=== PATIENT | male | born 1940 | race Caucasian/White ===

== ENCOUNTER 2018-01-27 19:51 | Inpatient (IN) | payer MEDICARE, BC ==
[2018-01-27] VITALS: BP 128/71
[~2018-01-27] VITALS: Ht 172.7 cm; Wt 175.0 kg
[2018-01-27] MEDS ORDERED: normal saline 1000ML IV soln IVB ONE (20:00)
[2018-01-27] MEDS ORDERED: pantoprazole 40 MG vial IV ONE (20:05)
[2018-01-27] MEDS ORDERED: ASPI-1265 PO (20:16)
[2018-01-27 20:17] LABS: BASOPHILS # (AUTO) 0.1 X10'3 (0-0.2); BASOPHILS % (AUTO) 0.6 % (0-1); EOSINOPHILS # (AUTO) 0.4 X10'3 (0-0.9); EOSINOPHILS % (AUTO) 2.6 % (0-6); HEMATOCRIT 40.3 % (42.0-52.0); HEMOGLOBIN 13.9 g/dl (14.0-17.9); LYMPHOCYTES # (AUTO) 2.7 X10'3 (1.1-4.8); MEAN CORPUSCULAR HEMOGLOBIN 32.8 PG (27.0-31.0); MEAN CORPUSCULAR HGB CONC 34.5 % (33.0-36.5); MEAN CORPUSCULAR VOLUME 95.1 FL (78-98); MEAN PLATELET VOLUME 7.9 FL (7.4-10.4); MONOCYTES # (AUTO) 0.9 X10'3 (0-0.9); MONOCYTES % (AUTO) 5.5 % (2-12); NEUTROPHILS # (AUTO) 11.8 X10'3 (1.8-7.7); NEUTROPHILS % (AUTO) 74.3 % (42-75); PLATELET COUNT 455 X10'3 (140-440); RED BLOOD COUNT 4.24 X10'6 (4.70-6.10); WHITE BLOOD COUNT 15.9 X10'3 (4.5-11.0)
[2018-01-27] MEDS: pantoprazole 40MG/NS 100ML BAG 100 ML IV SCH (20:33)
[2018-01-27] MEDS ORDERED: temazepam 15mg capsule PO PRN (21:00)
[2018-01-27 21:27] LABS: INR 1.1 INR; PARTIAL THROMBOPLASTIN TIME 23 SECONDS (22-32); PROTHROMBIN TIME 11.6 SECONDS (9.0-12.0)
[2018-01-27 21:30] LABS: ALANINE AMINOTRANSFERASE 20 U/L (12-78); ALBUMIN 2.8 G/DL (3.4-5.0); ALKALINE PHOSPHATASE 93 IU/L (46-116); ANION GAP 6 (8-16); ASPARTATE AMINO TRANSFERASE 16 U/L (10-37); BILIRUBIN,TOTAL 0.4 MG/DL (0.1-1.0); BLOOD UREA NITROGEN 37 MG/DL (7-18); BUN/CREATININE RATIO 39.8 (5.4-32.0); CALCIUM 8.3 MG/DL (8.5-10.1); CHLORIDE 106 MMOL/L (99-107); CREATININE 0.93 MG/DL (0.60-1.10); GLUCOSE 135 MG/DL (70-104); POTASSIUM 4.3 MMOL/L (3.5-5.1); SODIUM 142 MMOL/L (135-145); TOTAL CARBON DIOXIDE 29.9 MMOL/L (24-32); TOTAL PROTEIN 5.6 G/DL (6.4-8.2); eGFR 79 ML/MIN
[2018-01-27 21:34] LABS: TROPONIN I < 0.04 NG/ML (0.0-0.05)
[2018-01-27 21:38] LABS: CLARITY,URINE CLEAR (Clear); COLOR,URINE YELLOW (Yellow); GLUCOSE, URINE NEGATIVE (Neg); KETONES,URINE 15 mg/dl (Neg); LEUKOCYTE ESTERASE ,URINE NEGATIVE (Neg); NITRITES, URINE NEGATIVE (Neg); OCCULT BLOOD,URINE NEGATIVE (Neg); PROTEIN,URINE NEGATIVE (Neg)
[2018-01-27 21:39] LABS: UA COLLECTION TYPE CLN CATCH MIDSTREAM
[2018-01-27] MEDS ORDERED: ondansetron/PF 4mg/2ml inj IV PRN (22:25)
[2018-01-27] MEDS ORDERED: acetaminophen 325mg tablet PO PRN ×2 (22:25)
[2018-01-27] MEDS ORDERED: mag hydrox/Alum hydrox/simeth 30ml oral suspension PO PRN (22:25)
[2018-01-27] MEDS ORDERED: magnesium hydroxide 30ml (MOM) UD suspension PO PRN (22:25)
[2018-01-27] MEDS ORDERED: HYDROcodone/acetaminophen 5mg/325mg tablet PO PRN (22:25)
[2018-01-27 22:46] LABS: OCCULT BLOOD STOOL NEGATIVE (Neg)
[2018-01-27 22:47] LABS: GASTRIC OCCULT BLOOD POSITIVE (Neg)
[2018-01-27] MEDS: normal saline 1000ml 1,000 ML IV SCH (22:47)
[2018-01-28] VITALS (12 sets, daily range): BP systolic 98–146; BP diastolic 57–96
[2018-01-28] MEDS ORDERED: pantoprazole 40MG/NS 100ML BAG 100 ML IV SCH (01:00)
[2018-01-28] MEDS: pantoprazole 40MG/NS 100ML BAG 100 ML IV SCH ×5 (02:32→21:00)
[2018-01-28 05:48] LABS: ALBUMIN 2.7 G/DL (3.4-5.0); ANION GAP 6 (8-16); BLOOD UREA NITROGEN 39 MG/DL (7-18); BUN/CREATININE RATIO 49.4 (5.4-32.0); CALCIUM 8.2 MG/DL (8.5-10.1); CHLORIDE 107 MMOL/L (99-107); CREATININE 0.79 MG/DL (0.60-1.10); GLUCOSE 113 MG/DL (70-104); POTASSIUM 4.1 MMOL/L (3.5-5.1); SODIUM 140 MMOL/L (135-145); TOTAL CARBON DIOXIDE 27.4 MMOL/L (24-32); eGFR > 90 ML/MIN
[2018-01-28 05:54] LABS: BASOPHILS # (AUTO) 0.1 X10'3 (0-0.2); BASOPHILS % (AUTO) 0.5 % (0-1); EOSINOPHILS # (AUTO) 0.2 X10'3 (0-0.9); EOSINOPHILS % (AUTO) 1.8 % (0-6); HEMATOCRIT 33.9 % (42.0-52.0); HEMOGLOBIN 11.5 g/dl (14.0-17.9); LYMPHOCYTES # (AUTO) 1.2 X10'3 (1.1-4.8); LYMPHOCYTES % (AUTO) 10.8 % (21-51); MEAN CORPUSCULAR HEMOGLOBIN 32.6 PG (27.0-31.0); MEAN CORPUSCULAR HGB CONC 34.1 % (33.0-36.5); MEAN CORPUSCULAR VOLUME 95.6 FL (78-98); MEAN PLATELET VOLUME 7.7 FL (7.4-10.4); MONOCYTES # (AUTO) 0.7 X10'3 (0-0.9); MONOCYTES % (AUTO) 6.3 % (2-12); NEUTROPHILS % (AUTO) 80.6 % (42-75); PLATELET COUNT 393 X10'3 (140-440); RED BLOOD COUNT 3.54 X10'6 (4.70-6.10); RED CELL DISTRIBUTION WIDTH 13.5 % (11.5-14.5); WHITE BLOOD COUNT 11.1 X10'3 (4.5-11.0)
[2018-01-28] MEDS: normal saline 1000ml 1,000 ML IV SCH ×3 (08:44→23:11)
[2018-01-28] MEDS ORDERED: fentaNYL/PF 50MCG/1 ML 2ML syringe ONE (15:28)
[2018-01-28] MEDS ORDERED: MIDAZolam 5mg/5ml vial ONE (15:29)
[2018-01-28] MEDS ORDERED: LIDOcaine Viscous 15ml cup ONE (15:29)
[2018-01-29] VITALS: BP 126/71
[2018-01-29] MEDS: pantoprazole 40MG/NS 100ML BAG 100 ML IV SCH ×2 (01:42→07:51)
[2018-01-29 05:33] LABS: BASOPHILS # (AUTO) 0.1 X10'3 (0-0.2); BASOPHILS % (AUTO) 0.9 % (0-1); EOSINOPHILS # (AUTO) 0.2 X10'3 (0-0.9); EOSINOPHILS % (AUTO) 2.7 % (0-6); HEMATOCRIT 32.9 % (42.0-52.0); HEMOGLOBIN 11.1 g/dl (14.0-17.9); LYMPHOCYTES # (AUTO) 1.9 X10'3 (1.1-4.8); LYMPHOCYTES % (AUTO) 24.1 % (21-51); MEAN CORPUSCULAR HEMOGLOBIN 32.3 PG (27.0-31.0); MEAN CORPUSCULAR HGB CONC 33.7 % (33.0-36.5); MEAN CORPUSCULAR VOLUME 95.8 FL (78-98); MEAN PLATELET VOLUME 7.5 FL (7.4-10.4); MONOCYTES # (AUTO) 0.6 X10'3 (0-0.9); MONOCYTES % (AUTO) 7.2 % (2-12); NEUTROPHILS # (AUTO) 5.1 X10'3 (1.8-7.7); NEUTROPHILS % (AUTO) 65.1 % (42-75); PLATELET COUNT 353 X10'3 (140-440); RED BLOOD COUNT 3.43 X10'6 (4.70-6.10); WHITE BLOOD COUNT 7.9 X10'3 (4.5-11.0)
[2018-01-29 06:00] LABS: ANION GAP 7 (8-16); BLOOD UREA NITROGEN 23 MG/DL (7-18); BUN/CREATININE RATIO 26.7 (5.4-32.0); CALCIUM 8.2 MG/DL (8.5-10.1); CHLORIDE 109 MMOL/L (99-107); CREATININE 0.86 MG/DL (0.60-1.10); GLUCOSE 93 MG/DL (70-104); SODIUM 143 MMOL/L (135-145); eGFR 86 ML/MIN
[2018-01-29 06:01] LABS: POTASSIUM 3.8 MMOL/L (3.5-5.1)
[2018-01-29 07:00] VITALS: BP 110/67
[2018-01-29] MEDS: normal saline 1000ml 1,000 ML IV SCH (10:42)
[2018-01-29 11:13] VITALS: BP 118/70
[2018-01-29] MEDS ORDERED: PANT40TA4 PO (15:45)
[2018-01-29] MEDS ORDERED: pantoprazole 40mg Tablet.DR PO SCH (20:00)
== END 2018-01-29 16:25 | disposition home or self-care (01) | DRG 369 ==
LOC: ER 19:52 → SUR 3N 22:25 → CMPBEDREQ 01-28 19:53
PROVIDERS: ADMIT Hospitalist; ATTEND Family Medicine
PROC: 0DB58ZX Excision of Esophagus, Via Natural or Artificial Opening Endoscopic, Diagnostic (ICD-10-PCS; principal; 2018-01-28)
PROC: 0DB68ZX Excision of Stomach, Via Natural or Artificial Opening Endoscopic, Diagnostic (ICD-10-PCS; 2018-01-28)
DX: K22.6 Gastro-esophageal laceration-hemorrhage syndrome (principal); D62 Acute posthemorrhagic anemia; E46 Unspecified protein-calorie malnutrition; Z68.43 Body mass index [BMI] 50.0-59.9, adult; K29.01 Acute gastritis with bleeding; K20.9 Esophagitis, unspecified; K22.70 Barrett's esophagus without dysplasia; N40.0 Benign prostatic hyperplasia without lower urinary tract symptoms; K44.9 Diaphragmatic hernia without obstruction or gangrene; K29.81 Duodenitis with bleeding; Z79.82 Long term (current) use of aspirin
CPT/HCPCS: 36415; 43239; 71045; 80048; 80053; 81003; 82271; 82272; 84484; 85025; 85610; 85730; 86885; 86900; 86901; 87070; 93005; 96361; 96374; 99291; A4620; C9113; G0500; J2250; J3010; J7030